=== PATIENT | male | born 1955 | race Caucasian/White ===

== ENCOUNTER → 2021-08-26 | Outpatient (REF) | payer SELFPAY | LOC: M LAB REF 18:52 | PROVIDERS: ATTEND Physician Assistant | DX: L03.312 Cellulitis of back [any part except buttock and flank] (principal) ==

== ENCOUNTER → 2024-04-23 | Outpatient (REF) | payer MEDICARE, MEDICAID | LOC: M LAB REF 16:04 | PROVIDERS: ATTEND Surgery | DX: D17.0 Benign lipomatous neoplasm of skin and subcutaneous tissue of head, face and neck (principal) ==